=== PATIENT | male | born 1955 | race Native Hawaiian/Other Pacific Islander ===

== ENCOUNTER 2016-09-10 09:46 | Outpatient (CLI) | payer OTHER | END 2016-09-10 19:35 | disposition home or self-care (01) | LOC: MRI 09:46 | DX: M54.2 Cervicalgia (principal) ==

== ENCOUNTER 2018-05-21 13:50 | Outpatient (CLI) | payer OTHER | END 2018-05-21 20:36 | disposition home or self-care (01) | LOC: RAD 13:50 | DX: M54.5 Low back pain (principal) ==

== ENCOUNTER 2018-09-04 10:52 | Outpatient (CLI) | payer OTHER | END 2018-09-04 23:39 | disposition home or self-care (01) | LOC: MRI 10:52 | DX: M54.5 Low back pain (principal) ==

== ENCOUNTER 2019-11-02 10:23 | Outpatient (CLI) | payer OTHER | END 2019-11-02 19:21 | disposition home or self-care (01) | LOC: US 10:23 | DX: I87.2 Venous insufficiency (chronic) (peripheral) (principal); R20.0 Anesthesia of skin; R60.0 Localized edema ==

== ENCOUNTER 2020-04-26 08:04 | Outpatient (CLI) | payer OTHER | END 2020-04-26 21:04 | disposition home or self-care (01) | LOC: CT 08:04 | PROVIDERS: ATTEND Internal Medicine | DX: R04.2 Hemoptysis (principal); J44.9 Chronic obstructive pulmonary disease, unspecified; R63.4 Abnormal weight loss | CPT/HCPCS: 36415; 82565; 84520; Q9963 ==

== ENCOUNTER 2020-05-18 03:32 | Emergency (ER) | payer OTHER ==
[~2020-05-18] VITALS: Ht 182.9 cm; Wt 106.1 kg
[2020-05-18 04:28] VITALS: BP 117/88; TEMP 98.5
== END 2020-05-18 04:28 | disposition home or self-care (01) ==
LOC: ED 03:32
PROC: 0HQ1XZZ Repair Face Skin, External Approach (ICD-10-PCS; principal; 2020-05-18)
DX: S01.112A Laceration without foreign body of left eyelid and periocular area, initial encounter (principal); W06.XXXA Fall from bed, initial encounter; Z91.81 History of falling; Y92.098 Other place in other non-institutional residence as the place of occurrence of the external cause
CPT/HCPCS: 99283